=== PATIENT | male | born 1995 | race Caucasian/White ===

== ENCOUNTER 2024-09-26 10:30 | Emergency (ER) | payer OTHER, SELFPAY ==
[2024-09-26 10:43] VITALS: BP 149/98
[2024-09-26 11:07] VITALS: BP 151/107
--- NOTE | 2024-09-26 11:09 | ED.GENMED ---
History of Present Illness
General
Chief Complaint: Chest Pain
Source: patient
Exam Limitations: none
Time Seen by Provider: 09/26/24 10:52
Nursing documentation reviewed up to this point in time: agreed with
History of Present Illness
History of Present Illness:
TIME OF INITIAL EVALUATION
- 11:18AM
REVIEW OF OLD RECORDS
- No prior records
CHIEF COMPLAINT(S)
Chest pain
HISTORY OF PRESENT ILLNESS
The patient is a 29-year-old male presenting with chest pain and bilateral hand tingling. The symptoms began a couple of hours ago while the patient was getting ready for work. This did not occur during any exertional activities. The pain was
described as a sensation of tightness in the left chest that lasted for approximately an hour. There was no radiation of pain to the jaw, neck, or back. The patient reported feeling diaphoretic but denied shortness of breath or dizziness. No similar
symptoms have been experienced in the past. Patient denies any recent travel or recent surgeries. No exogenous hormone use.
As he was driving to urgent care and symptoms persisted that she did pass in urgent care and went in for evaluation. He was immediately referred to the emergency department.
SOCIAL HISTORY
The patient reports using nicotine through vaping. Occasionally smokes marijuana. Denies the use of cocaine or other recreational drugs.
PHYSICAL EXAM
- Vitals: Hypertensive, otherwise vital signs stable. Afebrile
- General: Well appearing in no distress
- HEENT: Moist oral mucosa
- Cardiovascular: No murmurs, normal heart rate, regular rhythm, No chest wall tenderness. 2+ palpable radial pulses bilaterally
- Pulmonary: No respiratory distress, breath sounds are clear and equal.
- Abdomen: Soft with no peritoneal signs, no tenderness
- Neurologic: Excellent strength all extremities, no coordination deficits
- Psychiatric: Appropriate mental status, normal insight and judgement
- Extremities: Nontender, no edema, moves all extremities equally. Negative Homans' sign bilaterally
- Skin: No rash, no lesions
PLAN
A repeat electrocardiogram (EKG) will be performed due to initial abnormalities potentially caused by movement artifact. Will obtain labs and plan to trend cardiac enzymes, including troponin levels, which may require monitoring over several hours.
DIFFERENTIAL DIAGNOSIS
The Differential Diagnosis includes, in no particular order and is not limited to:
1. Acute Coronary Syndrome
2. Myocardial Infarction
3. Gastroesophageal Reflux Disease (GERD)
4. Anxiety or Panic Attack
5. Pulmonary Embolism
6. Musculoskeletal Chest Pain
7. Pericarditis
8. Pneumothorax
9. Aortic Dissection
10. Costochondritis
RADIOLOGY
- Chest x-ray reveals no acute abnormalities
EKG
- Normal sinus rhythm, 76 bpm without acute ischemic change
- Repeat EKG remains unchanged, normal sinus rhythm, 76 bpm
LABS
- CBC without acute abnormalities, CMP with mild elevation in LFTs�advised patient to have repeated with primary care, serial troponins undetectable
CARE UPDATE
- Patient has remained essentially asymptomatic since arrival to the emergency department. His vital signs remained stable.
SUMMARY OF ENCOUNTER
The patient presented to the emergency department with chest pain and tingling in both hands occurring prior to her evaluation. Initial concerns included the possibility of an acute cardiac event. Management included monitoring of symptoms and
conducting necessary diagnostic tests such as serial troponin levels, repeat EKGs, and a chest X-ray. The patient remained asymptomatic during the stay in the emergency department. His vital signs remained stable. EKG nonischemic with 2 negative
serial troponins. Patient has a PERC score of 0 with very low suspicion for pulmonary embolism. Given patient has remained asymptomatic and hemodynamically stable with negative troponins, very low suspicion for acute cardiac/pulmonary process.
Feel stable for discharge home with primary care follow-up. Very strict return precautions discussed. Patient comfortable with discharge home.
PLAN
A repeat electrocardiogram (EKG) will be performed due to initial abnormalities potentially caused by movement artifact. Trend cardiac enzymes, including troponin levels, which may require monitoring over several hours.
INDEPENDENT REVIEW OF LABS AND INTERPRETATION OF TESTS
My independent review of the troponin levels indicates two serial negative results. My independent interpretation of the EKG is normal. My independent interpretation of the chest X-ray is normal.
FOLLOW-UP INSTRUCTIONS
The patient was advised to follow up with his primary care provider to ensure symptom resolution.
MEDICAL DECISION MAKING
1. Number & Complexity of Problems: Potential cardiac event with differential diagnoses including but not limited to acute coronary syndrome and myocardial infarction.
2. Data Reviewed: Reviewed serial troponin level results and EKGs.
3. Risk: Consideration of hospital admission was made, but outpatient management is appropriate based on negative test results, stable vitals, and the patients asymptomatic status during observation.
Review of Systems
Review of Systems
Allergies reviewed?: Yes
All Other Systems: ROS reviewed and negative except as documented in HPI and ROS
Phy Exam
Physical Exam
Physical Exam:
See HPI
Scores
Heart Score for Chest Pain Patients
STEMI patient?: No
History: Slightly or Non-Suspicious
ECG: Nonspecific Repolarization
Age: </= 45 years
Risk Factors: No Risk Factors
Troponin: </= Normal Limit
Heart Score for Chest Pain Patients: 1
Heart Score Risk: 2.5% MACE over next 6 weeks
Course
Orders/Labs/Results
Orders:
Orders
09/26/24 10:34
Electrocardiogram (*1) Urgent
Reason for Study: Chest Pain
EKG- Treatment ONCE
09/26/24 11:03
Cardiac Monitoring- Treatment ONCE
IV Insert/Care/Rem.- Treatment PRN
09/26/24 11:12
Electrocardiogram (*1) Urgent
Reason for Study: Chest Pain
EKG- Treatment ONCE
09/26/24 11:13
Complete Blood Count/With Diff Urgent
Comprehensive Metabolic Panel Urgent
Troponin I Urgent
09/26/24 11:18
CR Chest - 2 Views Urgent
Comment:
Reason For Exam: Chest pain
09/26/24 14:14
Troponin I Urgent
09/26/24 14:15
Electrocardiogram (*1) Urgent
Reason for Study: Chest Pain
EKG- Treatment ONCE
Abnormal Lab Results
09/26/24
11:13
MCH 33.3 H pg
(27.0-31.0)
Absolute Neuts (auto) 6.8 H 10^3/uL
(1.4-6.5)
Absolute Monos (auto) 0.8 H 10^3/uL
(0.1-0.6)
Neutrophils % 76.9 H %
(42.2-75.2)
Lymphocytes % 13.9 L %
(20.5-51.1)
Glucose 101 H mg/dl
(70-99)
AST 64 H U/L
(17-59)
ALT 124 H U/L
(0-50)
09/26/24 11:13
09/26/24 11:13
Vital Signs
Initial and Last Documented VS:
Initial Vital Signs
Temp Pulse Resp BP Pulse Ox
98.4 F 88 18 149/98 98
09/26/24 10:43 09/26/24 10:43 09/26/24 10:43 09/26/24 10:43 09/26/24 10:43
Last Documented Vital Signs
Temp Pulse Resp BP Pulse Ox
98.4 F 73 24 124/91 98
09/26/24 10:43 09/26/24 15:00 09/26/24 15:00 09/26/24 15:00 09/26/24 15:00
*Radiology
Radiology exam reviewed: preliminary read by ED provider (Chest x-ray reviewed by me-no acute abnormalities) and radiology read reviewed
*Pulse Oximetry
SaO2: 98
Oxygen Mode of Delivery: Room air
Patient hypoxic: no
*EKG
Interpreted by ED Provider?: Yes
EKG Intrepretation Date: 09/26/24
Interpretation: normal
Comparison EKG: no changes
Heart Rate: 76
Rate: normal
Rhythm: sinus
[place]: normal axis
Interval: normal QT interval
QRS Pattern: normal QRS
Ischemia: no ischemia
*Patient Safety Coordinator Interpretation
Rate: normal
Interpretation: normal
Heart Rate: 86
Rhythm: sinus
*Critical Care Note
Total Time (30-74mins, 75-104mins- exclusive of procedures): Not Applicable
ED Attending Note
-
Portions of this chart may have been created with voice recognition software.� Occasional wrong word or��sound alike� substitutions may have occurred due to the inherent limitations of voice recognition software.
Discharge Plan
Departure
Patient Disposition: Home (Routine Discharge)
Date of Disposition: 09/26/24
Time of Disposition: 15:37
Patient with high blood pressure during this ER visit?: Yes
Condition: Good
Covid-19: Not Applicable
Discharge Problem:
Chest pain
Instructions: Chest Pain That Is Not Caused by the Heart (DC), Chest pain, BLOOD PRESSURE
Referrals:
NONE,* [Family Provider, Internal Medicine]
Activity Restrictions/Additional Instructions:
RETURN TO THE EMERGENCY DEPARTMENT WITH ANY FEVERS, CHEST PAIN, SHORTNESS OF BREATH, BACK PAIN, LIGHTHEADEDNESS/DIZZINESS, NUMBNESS/TINGLING EXTREMITIES, WORSENING CURRENT SYMPTOMS, OR ANY OTHER CONCERNS
- As discussed�your cardiac enzymes were negative today in the emergency department. You were found to have elevated liver enzymes. Please be sure these are repeated within 1 month by your primary care to ensure they are trending down
- We are unsure the exact etiology of your symptoms today. Please stay well-hydrated and get plenty of rest. You can take Tylenol and/or Motrin as needed for pain.
- Follow-up with primary care for further evaluation/management and to ensure that symptoms are improving
Monitor your symptoms closely and return to the emergency department with any acute worsening/new symptoms or any other concerns
Interventions
Interventions:
*Risk Screen - Suicide Last Done: 09/26/24 10:43
*General Assessment Last Done: 09/26/24 11:17
*Neglect/Abuse Screening Last Done: 09/26/24 10:43
*ED- Fall Risk Assessment Last Done: 09/26/24 11:17
*ED COVID-19 Vaccine History Last Done: 09/26/24 11:17
*Nursing Disposition Last Done: 09/26/24 15:56
ED- Cardiac Assessment Last Done: 09/26/24 11:17
Discharge Date and Time
Discharge Date/Time: 09/26/24 15:57
Print Language: SLOVENIAN
[2024-09-26 11:17] VITALS: BMI 27.6
[2024-09-26 11:30] LABS: % Basophils 0.3 % (0-2); % Eosinophils 0.1 % (0-6); % Immature Granulocytes 0.3 % (0-0.5); % Lymphocytes 13.9 % (20.5-51.1); % Monocytes 8.5 % (1.7-9.3); % Neutrophils 76.9 % (42.2-75.2); Absolute Lymphocytes 1.2 10^3/uL (1.2-3.4); Absolute Monocytes 0.8 10^3/uL (0.1-0.6); Absolute Neutrophils 6.8 10^3/uL (1.4-6.5); Hematocrit 45.7 % (39.0-52.0); Hemoglobin 16.6 g/dL (13.0-18.0); Mean Corp Hgb Conc. 36.3 g/dL (33.0-37.0); Mean Corpuscular Hgb 33.3 pg (27.0-31.0); Mean Corpuscular Volume 91.8 fL (80.0-94.0); Mean Platelet Volume 10.1 fL (7.4-10.4); Nucleated Red Blood Cells % 0 % (-); Platelet Count 244 10^3/uL (130-400); Red Blood Cell Count 4.98 10^6/uL (4.70-6.10); Red Cell Dist. Width 11.9 % (11.5-14.5); White Blood Cell Count 8.9 10^3/uL (4.8-10.8)
[2024-09-26 11:44] LABS: ALT (SGPT) 124 U/L (0-50); AST (SGOT) 64 U/L (17-59); Albumin 4.7 g/dl (3.5-5.0); Alkaline Phosphatase 98 U/L (38-126); Blood Urea Nitrogen 9 mg/dl (9-20); Calcium 9.5 mg/dl (8.4-10.2); Carbon Dioxide 27 mmol/L (22-30); Chloride 105 mmol/L (98-107); Estimated Creatinine Clearance 113 ml/min; Glucose 101 mg/dl (70-99); Potassium 4.2 mmol/L (3.5-5.1); Sodium 141 mmol/L (135-145); Total Bilirubin 0.5 mg/dl (0.2-1.3); Total Protein 8.1 g/dl (6.3-8.2); eGFR > 60.00
[2024-09-26 11:55] LABS: Troponin I < 0.012 ng/ml
[2024-09-26 12:00] VITALS: BP 136/98
[2024-09-26 13:07] VITALS: BP 139/86
--- NOTE | 2024-09-26 13:40 | EDRN ---
Mary Lr PA in to see pt at this time.
[2024-09-26 14:00] VITALS: BP 131/85
--- NOTE | 2024-09-26 14:54 | EDRN ---
Repeat trop drawn and sent at 14:15
[2024-09-26 14:57] LABS: Troponin I < 0.012 ng/ml
[2024-09-26 15:00] VITALS: BP 124/91
== END 2024-09-26 15:57 | disposition home or self-care (01) ==
LOC: EMR 10:30
PROVIDERS: Physician Assistant; EMERGENCY PHYSICIAN Emergency Medicine
DX: R07.89 Other chest pain (principal); R20.2 Paresthesia of skin; F17.290 Nicotine dependence, other tobacco product, uncomplicated; F12.90 Cannabis use, unspecified, uncomplicated
CPT/HCPCS: 99285; 71046; 80053; 84484; 85025; 93005